=== PATIENT | male | born 1960 | race Caucasian/White ===

== ENCOUNTER → 2019-04-23 07:11 | Outpatient (CLI) | payer OTHER, SELFPAY ==
--- NOTE | 2019-04-23 07:20 | MRI_ITS ---
STUDY: MRI BRAIN WITH AND WITHOUT CONTRAST (ATTENTION INTERNAL AUDITORY CANALS - I.A.C.''s) REASON FOR EXAM: Male, 58 years old. dizziness X 5 wks, rt ear hearing loss, tinnitus ( not new symptoms) TECHNIQUE: Standardized multiplanar fat and water weighted pulse sequences were obtained. IV Dotarem 18ml was administered for the contrast portion of the examination. COMPARISON: None. FINDINGS: Normal bilateral temporal bones. Normal bilateral internal auditory canals. 2.5 x 3.5 cm oval loculated mass of the right cerebellopontine angle which is slightly hypointense to brain parenchyma on the T1-weighted images, isointense with CSF on the T2-weighted images but increased intensity on the FLAIR images and demonstrates restricted diffusion on the ADC map consistent with an epidermoid. H this demonstrates thin peripheral contrast enhancement which is more prominent laterally with contrast enhancement extending into the internal auditory canal with contrast enhancement of the cochlea and semicircular canals. Normal size of the ventricles and extra-axial spaces for the patient''s age. Normal white matter tracts of the supratentorial brain. There is no evidence for recent intracranial ischemia or other cause of cytotoxic edema on diffusion weighted imaging (DWI). Normal bilateral basal ganglia. Normal thalami. Normal flow voids within the major intracranial circulation suggesting patency by spin echo criteria. Normal venous enhancement. There is no enhancing intra-axial or extra-axial abnormality. There is no extra-axial fluid accumulation. Normal sella turcica, pituitary gland, infundibular stalk, optic chiasm and hypothalamus. Normal tectal plate and pineal gland. Normal midbrain, david and medulla. Normal cerebellum. Normal basal cisterns. No demonstrated orbital abnormality, within the constraints of a routine brain study. Normal visualized paranasal sinuses. Normal calvarium and skull base. Normal visualized soft tissue structures. Normal visualized upper cervical spine. 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 Electronically Signed: Herb Berumen MD at 12:23 EST Tel , Service support ,
== END ==
PROVIDERS: PCP Nurse Practitioner; Referring Provider Otolaryngology; Visit Provider Otolaryngology
DX: R42 Dizziness and giddiness (principal)
CPT/HCPCS: 70553; A9575

== ENCOUNTER 2020-10-14 08:00 | Outpatient (RCR) | payer OTHER, SELFPAY ==
--- NOTE | 2020-10-07 10:50 | HP.PTEVAL_ITS ---
Patient's Visit Information RAFA ONEAL is a 60 year old M referred to Physical Therapy by ASPEN Mascorro with a diagnosis of RIGHT ELBOW PAIN. Date of Evaluation: 10/07/20 Physical Therapist: Matthew Temple, PT, Cert MDT, OCS - Visit Plan Frequency: 2x /Week Duration: 4 Weeks Plan: PT INERVENTIONS MODALTIES ,MANUAL THERAPY ,AND STRENGTHENING ELBOW/FORARM AND FUNCTIONAL STRENGTHENING - Subjective This 60 y/o male presents physical therapy right shoulder pain. Patient developed right elbow pain 6 weeks pickle ball felt pain and pop . Patient then return ~ 5weeks ago then reaggravated pain in elbow felt . Then just rested elbow pain is better. But ,occasional during certain movements feels sharp pain. Denies paresthesia/tingling. Patient major concern is pain affects activities and pickle ball suzan. Patient elbow pain affects sleeping. Patient right elbow pain affects QOL. Patient had x-rays. SOCIAL: . 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 NEURO: denies paresthesia/tingling. PALPATION :tender bicep brachial. medial elbow. AROM: elbow 0-140 degrees, wrist flexion 80 degrees, extension 85 degrees .supination/pronation 90 degrees. MMT: triceps 4/5,bicep brachi 4/5,brachials 3+/5 with pain, radiobrachilas 4-/5 pain, wrist extensors 4-5/ pain, wrist flexors. 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 Goal Time Frame: 4-6 Weeks Goal 2:: Patient to decrease elbow pain by 50% or > to improve function and pickle ball Goal Time Frame: 4-6 Weeks Goal 3:: Patient to increase strength of brachialis 4/5 with min pain Goal Time Frame: 4-6 Weeks Goal 4:: Patient be able to pickle ball and function with min limitations no pain Goal Time Frame: 4-6 Weeks Goal 5:: Patient to improve quick dash by 5 points or > to improve function and QOL Goal Time Frame: 4-6 Weeks - Rehabilitation Potential Physical Therapy Diagnosis: This 60 y/o male presents with strain of bicep brachias ,with pain and weakness right elbow occasional sharp pain with functional movements and unable to play pickle ball thus benefit from skilled PT Rehabilitation Potential: Good - Anticipated Interventions Thank you for the opportunity to evaluate your patient. For Medicare and Medicare HMO plans, please review the plan of care and approve it. It will need to be FAXED BACK to us at [phone] for Medicare purposes. For Medicare only, by signing this I certify the plan of care. Please let me know if there are questions or concerns regarding this plan of care. Physician Signature: Date:
--- NOTE | 2021-03-15 11:59 | HP.PT.NRP ---
RAFA ONEAL was seen in my office for initial evaluation on 10/07/20. The following Plan of Care was established for this patient: Initial Frequency: 2x /Week Initial Duration: 4 Weeks This patient was last seen in our office . Pertinent comments regarding their Physical therapy will appear below: Patient seen for PT for elbow pain for ROM/strength and modalities BUT Seen Orthopedic DR At this point I will be discontinuing this patient from physical therapy. I would be happy to see this patient again in the future if found appropriate by the physician. Thank you! Matthew Temple, PT, Cert MDT, OCS Balance/Gait/Functional tests - Balance/Special Test Scores Quick DASH Score: 29.5485
== END 2020-10-14 19:00 | disposition home or self-care (01) ==
LOC: PT 08:00
PROVIDERS: PCP Nurse Practitioner; Referring Provider Nurse Practitioner; Visit Provider Nurse Practitioner
DX: M25.521 Pain in right elbow (principal)
CPT/HCPCS: 97014; 97035; 97110; 97162; G0283

== ENCOUNTER → 2022-07-29 | Outpatient (CLI) | payer OTHER, SELFPAY ==
[2022-07-29 10:34] LABS: Absolute Lymphocyte Count 1.98 X10^3/uL (0.83-4.51); Absolute Neutrophil Count 3.5 X10^3/uL (2.0-7.7); Basophil# 0.04 X10^3/uL; Basophil% 0.6 % (0-1); Eosinophil# 0.37 X10^3/uL; Eosinophils% 5.7 % (0-5); Hemoglobin 16.1 g/dL (13.0-16.5); Lymphocyte # 1.98 X10^3/ul (0.83-4.51); Lymphocyte % 30.5 % (19-41); Mean Corp Hgb Conc 32.9 g/dL (32-36); Mean Corpuscular Volume 91.4 fL (80-94); Mean Platelet Vol. 11.7 fl (6.2-12.0); Monocyte# 0.61 X10^3/uL; Monocyte% 9.4 % (0-10); NRBC Flagged by Analyzer 0 % (0-5); Neutrophil # 3.48 X10^3/uL (2.7-7.7); Neutrophil % 53.5 % (47-70); Platelet Count 163 K/mm3 (150-450); RBC Distribution Width CV 13.1 % (11.6-14.6); RBC Distribution Width SD 43.9 fl (35.1-43.9); Red Blood Count 5.36 M/mm3 (4.6-6.2); White Blood Count 6.5 K/mm3 (4.4-11.0)
[2022-07-29 10:53] LABS: ALB/GLOB Ratio 1.1 RATIO (0.9-2.4); AST(SGOT) 21 U/L (15-37); Alanine Aminotransfer ALT/SGPT 26 U/L (16-61); Albumin, Serum 4.1 g/dL (3.2-5.0); Alkaline Phosphatase 62 U/L (45-117); Anion Gap 5 (5-15); BUN 30 mg/dL (7-18); BUN/Creat Ratio 30.8 RATIO (10-20); Calcium,Total 9.7 mg/dL (8.5-10.1); Chloride 108 mmol/L (98-107); Cholesterol 212 mg/dL (200); Creatinine, Serum 0.97 mg/dL (0.70-1.30); EST Glomerular Filtration Rate 83 mL/min (>60); Est Glom Filt Rate - Afr Amer 100 mL/min (>60); Globulin 3.8 g/dL (2.2-4.2); Glucose 115 mg/dL (74-106); High Density Lipoprotein 51 mg/dL; Potassium 4.3 mmol/L (3.5-5.1); Protein, Total 7.9 g/dL (6.4-8.2); Sodium Level 143 mmol/L (136-145); Triglycerides 118 mg/dL; Very Low Density Lipoprotein 24 mg/dL (5-40)
== END | disposition home or self-care (01) ==
PROVIDERS: PCP Nurse Practitioner; Referring Provider Nurse Practitioner Family; Visit Provider Nurse Practitioner Family
DX: M54.2 Cervicalgia (principal); E78.00 Pure hypercholesterolemia, unspecified
CPT/HCPCS: 36415; 80053; 80061; 85025

== ENCOUNTER → 2024-08-20 | Outpatient (CLI) | payer MEDICARE, OTHER, SELFPAY ==
--- NOTE | 2024-08-20 16:02 | MRI_ITS ---
PROCEDURE: BRAIN W/WO CONTRAST 08/20/2024 REASON FOR EXAM: MRI OF BRAIN WITH AND WITHOUT CONTRAST: RECURRENVERTIGO HX ACOUST TECHNIQUE: BRAIN W/WO CONTRAST Multiplanar and multisequence images were obtained. CONTRAST: Clariscan VOLUME: 19 mL COMPARISON: none FINDINGS: Loss of the normal high signal of the right cochlea, vestibule and semicircular canals showing post contrast enhancement with diffuse enhancement along the course of the right 7th and 8th cranial nerves. Normal appearance of the left cochlea, vestibule and semicircular canals. Normal appearance of the left 7th and 8th cranial nerves. No left cerebellopontine angle masses. Minimal left mastoiditis. No intracerebral or extra-axial hematomas or enhancing masses. No hyperacute or acute infarctions could be depicted. Normal MRI appearance of the cerebral and cerebellar parenchymal signals. Normal MRI appearance of different anatomical parts of the brain stem. Normal appearance of the ventricular system. Prominent cortical sulci and extra-axial CSF spaces. No shift of midline structures. Normal MRI appearance of orbital structures, both globes, optic nerves, optic chiasm, optic tracts and optic radiations. Scanned paranasal sinuses show no obvious abnormalities. 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 Minimal left mastoiditis. No acute infarcts, intracerebral or extra-axial hematomas. Reading [facility]
== END | disposition home or self-care (01) ==
LOC: MRI 15:41
PROVIDERS: PCP Nurse Practitioner Family; Referring Provider Nurse Practitioner Family; Visit Provider Nurse Practitioner Family
DX: D36.10 Benign neoplasm of peripheral nerves and autonomic nervous system, unspecified (principal)
CPT/HCPCS: 70553; A9575

== ENCOUNTER → 2024-10-23 | Outpatient (CLI) | payer MEDICARE, OTHER, SELFPAY ==
[2024-10-23 10:10] LABS: Hematocrit 43.8 % (40-54); Hemoglobin 14.8 g/dL (13.0-16.5); Immature Granulocytes Count 0.000 X10^3/uL (0.0-0.0); Mean Corp Hgb Conc 33.8 g/dL (32-36); Mean Corpuscular Volume 89.9 fL (80-94); Mean Platelet Vol. 11.2 fl (6.2-12.0); NRBC Flagged by Analyzer 0 % (0-5); Platelet Count 188 K/mm3 (150-450); RBC Distribution Width CV 12.6 % (11.6-14.6); RBC Distribution Width SD 42.0 fl (35.1-43.9); Red Blood Count 4.87 M/mm3 (4.6-6.2); White Blood Count 5.8 K/mm3 (4.4-11.0)
[2024-10-23 10:11] LABS: Color, Urine Yellow (Yellow); Glucose, Dipstick Normal (Normal); Ketone-Dipstick Negative (Negative); Leukocyte Esterase-Dipstick Negative /ul (Negative); Nitrite-Dipstick Negative (Negative); Occult Blood-Urine Negative /ul (Negative); Protein-Dipstick 30 mg/dl (Negative); Specific Gravity, Urine 1.025 (1.002-1.030); Urine Bilirubin Dipstick Negative (Negative)
[2024-10-23 10:54] LABS: AST(SGOT) 20 U/L (<=37); Alanine Aminotransfer ALT/SGPT 17 U/L (<=46); Albumin, Serum 4.0 g/dL (3.4-4.8); Alkaline Phosphatase 67 U/L (40-129); Anion Gap 10 (5-15); BUN 22 mg/dL (4-19); BUN/Creat Ratio 26.1 RATIO (10-20); Calcium,Total 9.6 mg/dL (7.6-11.0); Carbon Dioxide 26.4 mmol/L (21.0-32.0); Chloride 105 mmol/L (98-108); Cholesterol 202 mg/dL (<=200); Globulin 3.0 g/dL (2.2-4.2); Glucose 101 mg/dL (70-99); Low Density Lipoprotein Calc. 135 mg/dL; Potassium 4.0 mmol/L (3.3-5.1); Triglycerides 66 mg/dL; Very Low Density Lipoprotein 13 mg/dL (5-40); cholesterol:hdl ratio screen 3.78
[2024-10-23 14:57] LABS: Creatinine, Urine (random) 190.00 mg/dL (39.00-259.00)
[2024-10-23 14:58] LABS: Microalbumin,Random Urine < 12.0 mg/L (<20 mg/L)
[2024-10-24 16:09] LABS: PSA, Total 2.4 ng/mL (0.0-4.0)
[2024-10-28 13:07] LABS: Vitamin D 1,25-Dihydroxy 35.9 pg/mL (24.8-81.5)
== END | disposition home or self-care (01) ==
LOC: MTLAB 07:39
PROVIDERS: PCP Nurse Practitioner Family; Referring Provider Nurse Practitioner Family; Visit Provider Nurse Practitioner Family
DX: Z12.5 Encounter for screening for malignant neoplasm of prostate (principal); E78.00 Pure hypercholesterolemia, unspecified; Z13.21 Encounter for screening for nutritional disorder; R73.01 Impaired fasting glucose
CPT/HCPCS: 36415; 80053; 80061; 81002; 82043; 82570; 82652; 84153; 84443; 85025